=== PATIENT | male | born 2005 | race Caucasian/White ===

== ENCOUNTER → 2024-07-09 09:28 | Outpatient (REF) | payer OTHER, SELFPAY ==
[2024-07-09 12:36] LABS: Hepatitis B Surface Antibody Negative
[2024-07-10 14:37] LABS: Mumps Virus IgG Positive; Rubeola (Measles) IgG Positive; Varicella Zoster IgG (VZV) Positive
[2024-07-10 19:46] LABS: Rubella Positive
[2024-07-11 09:22] LABS: Quantiferon Mitogen minus NIL 9.95 IU/mL; Quantiferon NIL 0.05 IU/mL; Quantiferon Plus TB1 minus NIL 0.01 IU/mL (<=0.34); Quantiferon Plus TB2 minus NIL 0.02 IU/mL (<=0.34); Quantiferon TB Gold Plus Negative (Negative)
== END ==
LOC: OHS 09:28
PROVIDERS: ATTENDING PHYSICIAN Nurse Practitioner Family; FAMILY PHYSICIAN Nurse Practitioner Family
DX: Z23 Encounter for immunization (principal)
CPT/HCPCS: 36415; 86480; 86706; 86735; 86762; 86765; 86787